=== PATIENT | female | born 1980 | race Caucasian/White ===

== ENCOUNTER 2017-03-23 10:22 | Emergency (ER) | payer MEDICAID, OTHER ==
[~2017-03-23] VITALS: Ht 167.6 cm; Wt 99.8 kg
[~2017-03-23 10:22] MED LIST: AUGMENTIN XR 11 EACH ORAL; AURALGAN OTIC1 DROP BOTH EARS; BENADRYL25 M3 PO; BENADRYL25 MG ORAL; BLEPH-105 ML OP; FLOXIN OTIC10 DROP OT; IBUPROFEN200 M2 ORAL; IBUPROFEN800 MG ORAL; KEFLEX500 MG ORAL; NAPROSYN500 M1 ORAL; NKM; NORCO 5-325 TA1 EACH ORAL; NYQUIL D COLD295 M1 PO; OPCON-A EYE DRO15 ML OP
[2017-03-23 10:30] VITALS: BP 162/122
[2017-03-23] MEDS ORDERED: LORazepam 1mg tab ORAL ONE (11:00)
[2017-03-23] MEDS ORDERED: Cephalexin 500mg cap ORAL ONE (11:00)
[2017-03-23] MEDS ORDERED: DOXYCYCLINE MO100 MG ORAL (11:13)
[2017-03-23] MEDS ORDERED: BENADRYL25 MG ORAL (11:13)
[2017-03-23] MEDS ORDERED: KEFLEX500 MG ORAL (11:13)
--- NOTE | 2017-03-23 11:13 | Emergency Room Report ---
History of Present Illness General Chief Complaint: Skin Rash/Abscess Source: Patient Present Illness HPI 36-year-old female no significant past medical history presenting with rash to right abdomen. He should see she woke up with very itchy rash, and some bug bites on her right abdomen this morning, very itchy and painful. Patient states that mother has similar insect bites on her arm. Denies any fever or chills. Denies any throat swelling or shortness of breath Allergies: Coded Allergies: No Known Allergies (Unverified , 10/30/13) Patient History Past Medical History: see triage record Past Surgical History: none Pertinent Family History: none Last Menstrual Period: 02/2017 Now: No : 3 Para: 1 Reviewed Nursing Documentation: PMH: Agreed, PSxH: Agreed Review of Systems All Other Systems: negative except mentioned in HPI Physical Exam Vital Signs Date Time Temp Pulse Resp B/P (MAP) Pulse Ox O2 Delivery O2 Flow Rate FiO2 03/23/17 10:30 98.2 103 22 162/122 96 Room Air Sp02 EP Interpretation: reviewed, normal General Appearance: normal inspection, well appearing, no apparent distress, alert, GCS 15, non-toxic Head: normocephalic, atraumatic Eyes: bilateral eye normal inspection, bilateral eye PERRL, bilateral eye EOMI ENT: normal ENT inspection, normal pharynx, normal voice, moist mucus membranes Neck: normal inspection, full range of motion, supple Respiratory: normal inspection, lungs clear, normal breath sounds, no respiratory distress, no retraction, no wheezing, speaking full sentences, chest symmetrical Cardiovascular #1: normal inspection, regular rate, rhythm, no edema, normal capillary refill Cardiovascular #2: 2+ radial (R), 2+ radial (L) Gastrointestinal: normal inspection, non tender, soft, non-distended, no guarding Musculoskeletal: normal inspection, back normal, normal range of motion, non- tender Neurologic: normal inspection, alert, oriented x3, responsive, motor strength/ tone normal, sensory intact, normal gait, speech normal Psychiatric: normal inspection, judgement/insight normal, memory normal Skin: warm/dry, well hydrated, normal turgor, other - four < 2 cm round insect bites on her right side of the abdomen, with surrounding erythema, tender to palpation, cellulitis extending about 7 x 7 cm. No crepitus Medical Decision Making Diagnostic Impression: Primary Impression: Cellulitis Additional Impression: Insect bite ER Course 36 yo F with insect bites and rash Plan: Pain control antibiotics ER course: Pt given Benadryl with improvement of itchiness Also given dose of antibiotics here in the emergency room Disposition: Patient is to be discharged to home with prescription of benadryl. + antibiotics Patient is instructed to followup in the emergency room or with her PCP in 48 hours for wound check. Strict return precautions to the ED discussed with patient including worsening/ persistent symptoms, rapid spread of rash, throat swelling, or shortness of breath, which may indicate severe illness. Patient verbalized understanding Last Vital Signs Date Time Temp Pulse Resp B/P (MAP) Pulse Ox O2 Delivery O2 Flow Rate FiO2 03/23/17 10:30 98.2 103 22 162/122 96 Room Air Disposition: HOME, SELF-CARE Condition: Stable Scripts Doxycycline Monohydrate* (DOXYCYCLINE MONOHYDRATE*) 100 Mg Capsule 100 MG ORAL Q12H for 7 Days, #14 CAP 0 Refills Prov: Rosalva Barton M.D. 03/23/17 Cephalexin* (KEFLEX*) 500 Mg Capsule 500 MG ORAL Q6H for 7 Days, #28 CAP 0 Refills Prov: Rosalva Barton M.D. 03/23/17 Diphenhydramine Hcl* (BENADRYL*) 25 Mg Capsule 25 MG ORAL Q6H Y for Itching for 7 Days, #28 CAP Prov: Rosalva Barton M.D. 03/23/17 Referrals: [facility],REFERRING (PCP) Rosalva Barton M.D. Mar 23, 2017 11:13
[2017-03-23 11:15] VITALS: BP 140/88
[2017-03-23 11:22] VITALS: BP 140/88
== END 2017-03-23 11:22 | disposition home or self-care (01) ==
LOC: EMR 10:52
DX: L03.311 Cellulitis of abdominal wall (principal); S30.861A Insect bite (nonvenomous) of abdominal wall, initial encounter; W57.XXXA Bitten or stung by nonvenomous insect and other nonvenomous arthropods, initial encounter; Y93.9 Activity, unspecified; Y92.9 Unspecified place or not applicable
CPT/HCPCS: 99284

== ENCOUNTER 2017-10-02 13:38 | Emergency (ER) | payer MEDICAID ==
[~2017-10-02] VITALS: Ht 167.6 cm; Wt 97.5 kg
[~2017-10-02 13:38] MED LIST changes: +DOXYCYCLINE MO100 MG ORAL
[2017-10-02] MEDS ORDERED: NKM (13:52)
[2017-10-02 14:15] VITALS: BP 165/112
[2017-10-02] MEDS ORDERED: Ipratropium 0.02% Inh Soln 2.5ml UD HHN ONE (14:15)
[2017-10-02] MEDS ORDERED: Albuterol ud Inhalation HHN ONE (14:15)
--- NOTE | 2017-10-02 14:21 | Emergency Room Report ---
History of Present Illness General Chief Complaint: Upper Respiratory Illness Source: Patient Present Illness HPI Patient's had a cough for 2 nights. She has some moderate upper abdominal discomfort only when coughing (she denied pain to RN). She denies fevers or chills. There's no sore throat. The cough has been nonproductive. She's heard herself wheezing. She's never used an inhaler before. She does smoke. She denies any calf tenderness or edema. She is concerned about exposure to black mold. No nausea vomiting diarrhea dysuria rashes. She has some upper back pain on occasion. Her last period ended last week and was normal for her. Her father is a recent diagnosis of a blood clot to his lung although he has several severe respiratory problems. She does not take control pills, has not been immobilized and no recent surgeries or oncologic problems. The patient gets anxious coming to the doctor and states this is why her heart rate is elevated. 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 Last Menstrual Period: 09/28/17 Now: No : 3 Para: 1 Reviewed Nursing Documentation: PMH: Agreed; PSxH: Agreed Nursing Documentation-PMH Past Medical History: No Stated History Review of Systems All Other Systems: negative except mentioned in HPI Physical Exam Vital Signs Date Time Temp Pulse Resp B/P (MAP) Pulse Ox O2 Delivery O2 Flow Rate FiO2 10/02/17 13:47 98.6 112 18 165/112 94 Room Air 98.6 Sp02 EP Interpretation: reviewed, normal General Appearance: well appearing, no apparent distress, GCS 15 Head: normocephalic Eyes: bilateral eye normal inspection, bilateral eye PERRL ENT: moist mucus membranes Neck: supple Respiratory: wheezing, expiration - minimal Cardiovascular #1: no edema, tachycardia Cardiovascular #2: 2+ radial (L) Gastrointestinal: normal inspection, normal bowel sounds, non tender, no mass, non-distended, overweight Musculoskeletal: back normal, gait/station normal, normal range of motion, no calf tenderness, Neftali's Sign negative Neurologic: alert, oriented x3, grossly normal Psychiatric: anxious Skin: normal inspection, warm/dry Medical Decision Making Diagnostic Impression: Primary Impression: Atypical pneumonia Additional Impressions: Bronchospasm Resting tachycardia Cardiomegaly UTI (urinary tract infection) Qualified Codes: N30.00 - Acute cystitis without hematuria ER Course Patient presents with cough and wheezing for 2 nights. Differential includes bronchospasm, pneumonia, bronchitis, allergies amongst others. Risk factors are smoking. Evaluation will be with chest x-ray. The patient will be treated with bronchodilators and we will see how she does with this. On re- consideration I will be drawn labs including a d-dimer and check EKG. EKG is abnormal. CXR with cardiomegally. Labs with elevated D dimer and pyuria. Rocephin given. Improved post albuterol. Due to elevated d-dimer, CTA ordered. CTA without large clot. Nodularity bilat. Radiologist suggests evidence of infectious process. Discussed with patient. Azithromycin also begun. Patient improved - normal O2 sat and no more resting tachycardia. Stable for outpatient observation and treatment. (Needs echocardiogram.) Laboratory Tests Test 10/02/17 14:15 10/02/17 14:50 Urine Color Yellow Urine Appearance Slightly cloudy Urine pH 6 (4.5-8.0) Urine Specific [place] 1.025 (1.005-1.035) Urine Protein 2+ (NEGATIVE) H Urine Glucose (UA) Negative (NEGATIVE) Urine Ketones 1+ (NEGATIVE) H Urine Occult Blood 3+ (NEGATIVE) H Urine Nitrite Positive (NEGATIVE) H Urine Bilirubin Negative (NEGATIVE) Urine Urobilinogen Normal MG/DL (0.0-1.0) Urine Leukocyte Esterase 3+ (NEGATIVE) H Urine RBC 2-4 /HPF (0 - 2) H Urine WBC 15-20 /HPF (0 - 2) H Urine Squamous Epithelial Cells Few /LPF (NONE/OCC) Urine Bacteria Moderate /HPF (NONE) H Urine HCG, Qualitative Negative (NEGATIVE) White Blood Count 10.7 K/UL (4.8-10.8) Red Blood Count 5.56 M/UL (4.20-5.40) H Hemoglobin 16.0 G/DL (12.0-16.0) Hematocrit 47.5 % (37.0-47.0) H Mean Corpuscular Volume 85 FL (80-99) Mean Corpuscular Hemoglobin 28.7 PG (27.0-31.0) Mean Corpuscular Hemoglobin Concent 33.6 G/DL (32.0-36.0) Red Cell Distribution Width 11.7 % (11.6-14.8) Platelet Count 350 K/UL (150-450) Mean Platelet Volume 5.6 FL (6.5-10.1) L Neutrophils (%) (Auto) 65.0 % (45.0-75.0) Lymphocytes (%) (Auto) 26.1 % (20.0-45.0) Monocytes (%) (Auto) 8.1 % (1.0-10.0) Eosinophils (%) (Auto) 0.3 % (0.0-3.0) Basophils (%) (Auto) 0.6 % (0.0-2.0) Prothrombin Time 9.9 SEC (9.30-11.50) Prothrombin Time INR 0.9 (0.9-1.1) PTT 32 SEC (23-33) D-Dimer 0.67 mg/L FEU (0.00-0.49) H Sodium Level 137 MMOL/L (136-145) Potassium Level 3.7 MMOL/L (3.5-5.1) Chloride Level 101 MMOL/L (98-107) Carbon Dioxide Level 27 MMOL/L (21-32) Anion Gap 9 mmol/L (5-15) Blood Urea Nitrogen 13 mg/dL (7-18) Creatinine 1.1 MG/DL (0.55-1.30) Estimate Glomerular Filtration Rate 55.9 mL/min (>60) Glucose Level 114 MG/DL (74-106) H Calcium Level 8.8 MG/DL (8.5-10.1) Total Bilirubin 0.3 MG/DL (0.2-1.0) Aspartate Amino Transferase (AST) 18 U/L (15-37) Alanine Aminotransferase (ALT) 20 U/L (12-78) Alkaline Phosphatase 57 U/L (46-116) Total Creatine Kinase 119 U/L (26-308) Troponin I 0.002 ng/mL (0.000-0.056) Pro-B-Type Natriuretic Peptide 168 pg/mL (0-125) H Total Protein 7.1 G/DL (6.4-8.2) Albumin 2.8 G/DL (3.4-5.0) L Globulin 4.3 g/dL Albumin/Globulin Ratio 0.7 (1.0-2.7) L EKG Diagnostic Results Rate: tachycardiac Rhythm: other - tachycardia ST Segments: other - strain and R axis Rhythm Strip Diag. Results EP Interpretation: yes Rhythm: no PVC's, no ectopy, other - tachycardia Chest X-Ray Diagnostic Results Chest X-Ray Diagnostic Results : Chest X-Ray Ordered: Yes # of Views/Limited/Complete: 1 View Indication: Other EP Interpretation: Yes Interpretation: no consolidation, no effusion, no pneumothorax, other - cardiomegally CT/MRI/US Diagnostic Results CT/MRI/US Diagnostic Results : Imaging Test Ordered: CTA lungs Impression nodular parenchymal processes, no major PE Findings: There is some image degradation due to respiratory motion artifact, particularly at the lung bases. No definite intraluminal filling defects or other findings to suggest acute pulmonary embolus demonstrated. No evidence of pulmonary material dilatation or ventricular dilatation. No evidence of thoracic aortic aneurysm or dissection. The lungs demonstrate patchy, nodular, and groundglass opacities within the left lower lobe and inferior left upper lobe. Less extensive similar opacities are seen in the inferior right upper lobe and minimally in the right lower lobe , some nodular. No effusions. No salima masses. The heart is enlarged. No pericardial effusion. No mediastinal or hilar mass or adenopathy. No axillary or chest wall mass or adenopathy. Included upper abdominal anatomy is unremarkable. Impression: Limited exam due to motion artifact. Small peripheral emboli [employer]. No gross large vessel central pulmonary embolus demonstrated. Bilateral pulmonary parenchymal disease, left greater than right. Nonspecific, but suspect on the basis of pneumonia Cardiomegaly Last Vital Signs Date Time Temp Pulse Resp B/P (MAP) Pulse Ox O2 Delivery O2 Flow Rate FiO2 10/02/17 19:35 98.6 96 20 149/90 99 Room Air 21 98.6 Status: improved Disposition: HOME, SELF-CARE Condition: Improved Scripts Albuterol Sulfate* (ALBUTEROL SULFATE MDI*) 8.5 Gm Hfa.aer.ad 2 PUFF INH Q6H, #1 EA 0 Refills Prov: Иван Sims M.D. 10/02/17 Guaifenesin/Codeine Phos* (ROBITUSSIN AC*) 118 Ml Liquid 5 ML ORAL Q6H PRN for For Cough, #118 ML 0 Refills Prov: Иван Sims M.D. 10/02/17 Azithromycin* (ZITHROMAX*) 250 Mg Tablet 250 MG ORAL DAILY, #4 TAB 0 Refills Prov: Иван Sims M.D. 10/02/17 Иван Sims M.D. Oct 02, 2017 14:21
[2017-10-02 14:27] LABS: APPEARANCE,URINE SLIGHTLY CLOUDY; BILIRUBIN, URINE NEGATIVE (NEGATIVE); GLUCOSE, URINE (UA) NEGATIVE (NEGATIVE); KETONES,URINE 1+ (NEGATIVE); LEUKOCYTE ESTERASE ,URINE 3+ (NEGATIVE); NITRITE,URINE POSITIVE (NEGATIVE); PH,URINE 6 (4.5-8.0); PROTEIN,URINE 2+ (NEGATIVE); UROBILINOGEN,URINE NORMAL MG/DL (0.0-1.0)
[2017-10-02 14:43] LABS: COLOR,URINE YELLOW
[2017-10-02 14:58] LABS: BASOPHILS % (AUTO) 0.6 % (0.0-2.0); EOSINOPHILS % (AUTO) 0.3 % (0.0-3.0); HEMATOCRIT 47.5 % (37.0-47.0); LYMPHOCYTES % (AUTO) 26.1 % (20.0-45.0); MEAN CORPUSCULAR VOLUME 85 FL (80-99); MONOCYTES % (AUTO) 8.1 % (1.0-10.0); PLATELET COUNT 350 K/UL (150-450); RED BLOOD COUNT 5.56 M/UL (4.20-5.40); RED CELL DISTRIBUTION WIDTH 11.7 % (11.6-14.8); WHITE BLOOD COUNT 10.7 K/UL (4.8-10.8)
[2017-10-02 15:15] LABS: INR 0.9 (0.9-1.1)
[2017-10-02 15:17] LABS: ANION GAP 9 mmol/L (5-15); BLOOD UREA NITROGEN 13 mg/dL (7-18); CALCIUM 8.8 MG/DL (8.5-10.1); CARBON DIOXIDE 27 MMOL/L (21-32); CHLORIDE 101 MMOL/L (98-107); CREATININE 1.1 MG/DL (0.55-1.30); POTASSIUM 3.7 MMOL/L (3.5-5.1); SODIUM 137 MMOL/L (136-145)
[2017-10-02 15:28] LABS: ALANINE AMINOTRANSFERASE 20 U/L (12-78); ALBUMIN 2.8 G/DL (3.4-5.0); ALBUMIN/GLOBULIN RATIO 0.7 (1.0-2.7); ALKALINE PHOSPHATASE 57 U/L (46-116); ASPARTATE AMINO TRANSFERASE 18 U/L (15-37); BILIRUBIN,TOTAL 0.3 MG/DL (0.2-1.0); CREATINE KINASE 119 U/L (26-308)
[2017-10-02 15:50] VITALS: BP 142/102
[2017-10-02] MEDS ORDERED: cefTRIAXone 1 GM in NS 55 ML IVPB ONE (16:15)
[2017-10-02 17:35] VITALS: BP 156/100
[2017-10-02] MEDS ORDERED: AZITHROMYCIN250 MG ORAL (19:22)
[2017-10-02] MEDS ORDERED: GUAIFENESIN-CO118 M1 ORAL (19:22)
[2017-10-02] MEDS ORDERED: ALBUTEROL SULF8.5 GM INH (19:22)
[2017-10-02 19:30] VITALS: BP 149/90
[2017-10-02] MEDS ORDERED: Azithromycin 250mg tab ORAL ONE (19:30)
[2017-10-02 19:35] VITALS: BP 149/90
--- NOTE | 2017-10-03 09:13 | Diagnostic Imaging Report ---
Indication: Cough Technique: One view of the chest Comparison: none Findings: The heart is enlarged. The left hemidiaphragm is obscured. The lungs and pleural spaces are otherwise clear Impression: Cardiomegaly. Obscured left hemidiaphragm, probably due to overlying soft tissue, but pleural and/or parenchymal disease at the left lung base also a possibility This agrees with the preliminary interpretation provided by the emergency room physician
--- NOTE | 2017-10-03 09:38 | Diagnostic Imaging Report ---
ndication: Cough and shortness of breath Technique: IV administration nonionic contrast. Spiral acquisitions obtained from the lung bases to the lung apices. Multiplanar and 3-D reconstructions were generated. Total dose length product 1229.78 mGycm. CTDIvol(s) 42.72 mGy. Dose reduction achieved using automated exposure control Comparison: none Findings: There is some image degradation due to respiratory motion artifact, particularly at the lung bases. No definite intraluminal filling defects or other findings to suggest acute pulmonary embolus demonstrated. No evidence of pulmonary material dilatation or ventricular dilatation. No evidence of thoracic aortic aneurysm or dissection. The lungs demonstrate patchy, nodular, and groundglass opacities within the left lower lobe and inferior left upper lobe. Less extensive similar opacities are seen in the inferior right upper lobe and minimally in the right lower lobe, some nodular. No effusions. No salima masses. The heart is enlarged. No pericardial effusion. No mediastinal or hilar mass or adenopathy. No axillary or chest wall mass or adenopathy. Included upper abdominal anatomy is unremarkable. Impression: Limited exam due to motion artifact. Small peripheral emboli [employer]. No gross large vessel central pulmonary embolus demonstrated. Bilateral pulmonary parenchymal disease, left greater than right. Nonspecific, but suspect on the basis of pneumonia Cardiomegaly This agrees with the preliminary interpretation provided overnight by [facility]. The CT scanner at [facility] is accredited by the [employer] and the scans are performed using protocols designed to limit radiation exposure to as low as reasonably achievable to attain images of sufficient resolution adequate for diagnostic evaluation.
== END 2017-10-02 19:35 | disposition home or self-care (01) ==
LOC: EMR 14:25
DX: J18.9 Pneumonia, unspecified organism (principal); J98.01 Acute bronchospasm; R00.0 Tachycardia, unspecified; I51.7 Cardiomegaly; N30.00 Acute cystitis without hematuria; R79.1 Abnormal coagulation profile; F17.200 Nicotine dependence, unspecified, uncomplicated
CPT/HCPCS: 36415; 71045; 71275; 80053; 81003; 81025; 82550; 83880; 84484; 85025; 85379; 85610; 85730; 87086; 87181; 93005; 94640; 94664; 96374; 99284; J0696; Q0144; Q9967

== ENCOUNTER 2018-01-13 17:47 | Emergency (ER) | payer MEDICAID ==
[~2018-01-13] VITALS: Ht 167.6 cm; Wt 104.3 kg
[~2018-01-13 17:47] MED LIST changes: +ALBUTEROL SULF8.5 GM INH; +AZITHROMYCIN250 MG ORAL; +GUAIFENESIN-CO118 M1 ORAL
[2018-01-13 17:59] VITALS: BP 142/91
[2018-01-13] MEDS ORDERED: Phenazopyridine 200mg tab ORAL ONE (18:00)
[2018-01-13 18:14] LABS: APPEARANCE,URINE CLOUDY; BILIRUBIN, URINE NEGATIVE (NEGATIVE); COLOR,URINE YELLOW; GLUCOSE, URINE (UA) NEGATIVE (NEGATIVE); KETONES,URINE NEGATIVE (NEGATIVE); LEUKOCYTE ESTERASE ,URINE 3+ (NEGATIVE); NITRITE,URINE NEGATIVE (NEGATIVE); PH,URINE 6 (4.5-8.0); PROTEIN,URINE 2+ (NEGATIVE); UROBILINOGEN,URINE NORMAL MG/DL (0.0-1.0)
--- NOTE | 2018-01-13 18:28 | Emergency Room Report ---
History of Present Illness General Chief Complaint: Abdominal Pain Source: Patient Present Illness HPI 37-year-old female presents emergency department complaining of 7 out of 10 in severity dysuria with lower abdominal pain that is radiating around to her lower back. Patient states that she just started her menstrual cycle yesterday however she is starting to notice burning upon urination. Patient denies vaginal discharge otherwise she reports intermittent abdominal cramping. Patient denies sharp shooting pains. Patient states for the most part her pain is constant and dull. Denies fevers or chills she denies nausea, vomiting, constipation or diarrhea. She denies . Denies hx of kidney stones. Patient states for the most part nothing exacerbates her pain, she did report that on the drive to the ED going over large bumps seemed to cause acute exacerbation of her pain which was not present before. She denies trauma or fall. Denies rashes or external vaginal lesions, swollen tender lymph nodes. Allergies: Coded Allergies: No Known Allergies (Unverified , 10/30/13) Patient History Past Medical History: see triage record Past Surgical History: none Pertinent Family History: none Last Menstrual Period: 01/12/18 Now: No : 3 Para: 1 Reviewed Nursing Documentation: PMH: Agreed; PSxH: Agreed Nursing Documentation-PMH Past Medical History: No Stated History Review of Systems All Other Systems: negative except mentioned in HPI Physical Exam Vital Signs Date Time Temp Pulse Resp B/P (MAP) Pulse Ox O2 Delivery O2 Flow Rate FiO2 01/13/18 17:55 98.4 118 16 142/91 98 Room Air 98.4 Sp02 EP Interpretation: reviewed, normal General Appearance: no apparent distress, alert, GCS 15, non-toxic Head: normocephalic, atraumatic ENT: hearing grossly normal, normal voice Neck: full range of motion Respiratory: lungs clear, normal breath sounds, speaking full sentences Cardiovascular #1: tachycardia Gastrointestinal: normal bowel sounds, non tender, soft, non-distended, no guarding Rectal: deferred Genitourinary: normal inspection, no CVA tenderness Musculoskeletal: back normal, gait/station normal, normal range of motion, non- tender Neurologic: alert, oriented x3, responsive, motor strength/tone normal, sensory intact, speech normal, grossly normal Psychiatric: judgement/insight normal Skin: normal color, no rash, warm/dry, well hydrated Lymphatic: no adenopathy Medical Decision Making PA Attestation Dr. Vargas is my supervising Physician whom patient management has been discussed with. Diagnostic Impression: Primary Impression: Dysuria Additional Impression: Abdominal pain Qualified Codes: R10.30 - Lower abdominal pain, unspecified ER Course 37-year-old female presents emergency department complaining of 7 out of 10 in severity dysuria with lower abdominal pain that is radiating around to her lower back. Patient states that she just started her menstrual cycle yesterday however she is starting to notice burning upon urination. Patient denies vaginal discharge otherwise she reports intermittent abdominal cramping. Patient denies sharp shooting pains. Patient states for the most part her pain is constant and dull. Denies fevers or chills she denies nausea, vomiting, constipation or diarrhea. She denies . Denies hx of kidney stones. Patient states for the most part nothing exacerbates her pain, she did report that on the drive to the ED going over large bumps seemed to cause acute exacerbation of her pain which was not present before. She denies trauma or fall. Denies rashes or external vaginal lesions, swollen tender lymph nodes. Ddx considered but are not limited to UTi , Pyelo, Acute appendicitis, STI, Stone, Cystitis, PID, Ovarian Torsion, ovarian cyst just to name a few. Vital signs: Tachycardic pt. is afebrile H&PE are most consistent with UTI / possible stone. HR auscultated to be fast/ tachy pt. reports that she gets told that frequently at doctors visits. ORDERS: - UA labs are attached : RBCs an occult blood consistent with menstrual cycle. Elevated white blood cells and leukocytes. Few bacteria ED INTERVENTIONS: -Pyridium Unable to d/w pt. UA results and CT consideration because she eloped when UA was pending. Labs Test 01/13/18 18:02 Urine Color Yellow Urine Appearance Cloudy Urine pH 6 (4.5-8.0) Urine Specific [place] 1.015 (1.005-1.035) Urine Protein 2+ (NEGATIVE) Urine Glucose (UA) Negative (NEGATIVE) Urine Ketones Negative (NEGATIVE) Urine Occult Blood 5+ (NEGATIVE) Urine Nitrite Negative (NEGATIVE) Urine Bilirubin Negative (NEGATIVE) Urine Urobilinogen Normal MG/DL (0.0-1.0) Urine Leukocyte Esterase 3+ (NEGATIVE) Urine RBC 20-30 /HPF (0 - 2) Urine WBC Tntc /HPF (0 - 2) Urine Squamous Epithelial Cells Many /LPF (NONE/OCC) Urine Bacteria Few /HPF (NONE) Urine HCG, Qualitative Negative (NEGATIVE) Last Vital Signs Date Time Temp Pulse Resp B/P (MAP) Pulse Ox O2 Delivery O2 Flow Rate FiO2 01/13/18 17:59 98.4 118 16 142/91 98 Room Air 98.4 Disposition: Beatriz Viramontes Jan 13, 2018 18:28
[2018-01-13 19:08] VITALS: BP 142/91
[2018-01-14] MEDS ORDERED: CEPHALEXIN500 MG ORAL (23:53)
[2018-01-14] MEDS ORDERED: IBUPROFEN600 MG ORAL (23:53)
== END 2018-01-13 19:08 | disposition left against medical advice (07) ==
LOC: EMR 18:28
DX: R30.0 Dysuria (principal); R10.30 Lower abdominal pain, unspecified
CPT/HCPCS: 81003; 81025; 87086; 99283

== ENCOUNTER 2018-01-14 23:29 | Emergency (ER) | payer MEDICAID ==
[~2018-01-14] VITALS: Ht 167.6 cm; Wt 104.3 kg
[2018-01-14 23:45] VITALS: BP 126/79
[2018-01-14] MEDS ORDERED: IBUPROFEN600 MG ORAL (23:53)
[2018-01-14] MEDS ORDERED: CEPHALEXIN500 MG ORAL (23:53)
--- NOTE | 2018-01-14 23:53 | Emergency Room Report ---
History of Present Illness General Chief Complaint: Abdominal Pain Source: Patient Present Illness HPI Is a 37-year-old female with no cerumen past medical history. She presents with chief complaint of pelvic pain. She was here yesterday for chief complaint of dysuria and frequency. She had urine sent and received a dose of Pyridium. Because was so busy she did not stay and left. Urinalysis showed UTI. She never got antibiotics. Her urinary urgency and frequency is better. She still has dysuria. No back pain. No nausea no vomiting no fever or chills. She is here for antibiotics. Allergies: Coded Allergies: No Known Allergies (Unverified , 10/30/13) Patient History Past Medical History: see triage record, old chart reviewed Past Surgical History: other Pertinent Family History: none Social History: Denies: smoking Last Menstrual Period: January 12 Now: No Immunizations: other Reviewed Nursing Documentation: PMH: Agreed; PSxH: Agreed Nursing Documentation-PMH Past Medical History: No Stated History Review of Systems Eye: Denies: eye pain, blurred vision ENT: Denies: ear pain, nose congestion, throat swelling Respiratory: Denies: cough, shortness of breath Cardiovascular: Denies: chest pain, palpitations Gastrointestinal: Denies: abdominal pain, diarrhea, nausea, vomiting Genitourinary: Reports: dysuria, pain Musculoskeletal: Denies: back pain, joint pain Skin: Denies: rash Neurological: Denies: headache, numbness Endocrine: Denies: increased thirst, increased urine Hematologic/Lymphatic: Denies: easy bruising All Other Systems: negative except mentioned in HPI Physical Exam Vital Signs Date Time Temp Pulse Resp B/P (MAP) Pulse Ox O2 Delivery O2 Flow Rate FiO2 01/14/18 23:38 98.4 116 18 120/79 98 Room Air 98.4 vitals with tachycardia Sp02 EP Interpretation: reviewed, normal General Appearance: well appearing, no apparent distress, alert Head: normocephalic, atraumatic Eyes: bilateral eye PERRL, bilateral eye EOMI ENT: hearing grossly normal, normal pharynx Neck: full range of motion, supple, no meningismus Respiratory: chest non-tender, lungs clear, normal breath sounds Cardiovascular #1: regular rate, rhythm - heart rate 90, no murmur Gastrointestinal: normal bowel sounds, no mass, no organomegaly, no bruit, non- distended, tenderness - suprapubic tenderness Musculoskeletal: back normal, gait/station normal, normal range of motion Psychiatric: mood/affect normal Skin: warm/dry Medical Decision Making Diagnostic Impression: Primary Impression: Abdominal pain Qualified Codes: R10.30 - Lower abdominal pain, unspecified Additional Impression: UTI (urinary tract infection) Qualified Codes: N30.00 - Acute cystitis without hematuria ER Course Patient with lower abdominal pain and urinalysis from yesterday show possible UTI. We'll go ahead and put on antibiotics. She grew out Escherichia coli in the past that's pansensitive. No evidence of ectopic. No evidence of pyelonephritis or acute abdomen. We'll discharge home. Last Vital Signs Date Time Temp Pulse Resp B/P (MAP) Pulse Ox O2 Delivery O2 Flow Rate FiO2 01/14/18 23:38 98.4 116 18 120/79 98 Room Air 98.4 Status: unchanged Disposition: HOME, SELF-CARE Condition: Stable Scripts Ibuprofen* (MOTRIN*) 600 Mg Tablet 600 MG ORAL THREE TIMES A DAY, #30 TAB 0 Refills Prov: KAMRAN WALLACE M.D. 01/14/18 Cephalexin* (KEFLEX*) 500 Mg Capsule 500 MG ORAL TID, #21 CAP Prov: KAMRAN WALLACE M.D. 01/14/18 Additional Instructions: Follow-up with your DrShaq in 2 to 3 days if not better. Return if symptom worsen. KAMRAN WALLACE M.D. Jan 14, 2018 23:53
[2018-01-15] MEDS ORDERED: Cephalexin 500mg cap ORAL ONE
[2018-01-15 00:15] VITALS: BP 126/79
== END 2018-01-15 01:10 | disposition home or self-care (01) ==
LOC: EMR 01-15 01:05
DX: N30.00 Acute cystitis without hematuria (principal)
CPT/HCPCS: 99284

== ENCOUNTER 2018-04-30 20:44 | Emergency (ER) | payer MEDICAID, OTHER ==
[~2018-04-30] VITALS: Ht 167.6 cm; Wt 99.8 kg
[~2018-04-30 20:44] MED LIST changes: +CEPHALEXIN500 MG ORAL; +IBUPROFEN600 MG ORAL
[2018-04-30] MEDS ORDERED: NKM (21:05)
[2018-04-30 21:17] VITALS: BP 147/98
[2018-04-30] MEDS ORDERED: CATAPRES0.1 MG ORAL (21:23)
--- NOTE | 2018-04-30 21:24 | Emergency Room Report ---
History of Present Illness General Chief Complaint: Hypertension Source: Patient Present Illness HPI Is a 37-year-old female with no past medical history. She presents with chief complaint of high blood pressure. 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 She try to go to a substance abuse center on Tuesday and blood pressure was elevated. She was told that she need Dr. tanner. She did admit to using crystal amphetamine today. She was also using last Tuesday. He her blood pressure was elevated 140 systolic over 100 diastolic. She's been here several times in the past without any issue with high blood pressure. Denies any chest pain, shortness of breath, fever chills or hematuria. No other complaint. Allergies: Coded Allergies: No Known Allergies (Unverified , 10/30/13) Patient History Past Medical History: see triage record, old chart reviewed Past Surgical History: none Pertinent Family History: none Social History: Reports: drug use - crystal meth Last Menstrual Period: 04/29/18 Now: No Immunizations: other Reviewed Nursing Documentation: PMH: Agreed; PSxH: Agreed Nursing Documentation-PMH Past Medical History: No History, Except For History Of Psychiatric Problem: Yes - substance abuse, anxiety Review of Systems Eye: Denies: eye pain, blurred vision ENT: Denies: ear pain, nose congestion, throat swelling Respiratory: Denies: cough, shortness of breath Cardiovascular: Denies: chest pain, palpitations Gastrointestinal: Denies: abdominal pain, diarrhea, nausea, vomiting Musculoskeletal: Denies: back pain, joint pain Skin: Denies: rash Neurological: Denies: headache, numbness Endocrine: Denies: increased thirst, increased urine Hematologic/Lymphatic: Denies: easy bruising All Other Systems: negative except mentioned in HPI Physical Exam Vital Signs Date Time Temp Pulse Resp B/P (MAP) Pulse Ox O2 Delivery O2 Flow Rate FiO2 04/30/18 21:00 98.7 97 16 160/116 97 Room Air 98.8 vitals with high blood pressure Sp02 EP Interpretation: reviewed, normal General Appearance: well appearing, no apparent distress, alert Head: normocephalic, atraumatic Eyes: bilateral eye PERRL, bilateral eye EOMI ENT: hearing grossly normal, normal pharynx Neck: full range of motion, supple, no meningismus Respiratory: chest non-tender, lungs clear, normal breath sounds Cardiovascular #1: regular rate, rhythm, no murmur Gastrointestinal: normal bowel sounds, non tender, no mass, no organomegaly, no bruit, non-distended Musculoskeletal: back normal, gait/station normal, normal range of motion Psychiatric: mood/affect normal Skin: warm/dry Medical Decision Making Diagnostic Impression: Primary Impression: Hypertension Qualified Codes: I10 - Essential (primary) hypertension Additional Impression: Methamphetamine abuse ER Course Patient presents with high blood pressure. This may be secondary to drug abuse and/or withdrawal symptoms. No evidence of endorgan damage. She been here several times in the past and blood pressures been unremarkable. Labs been unremarkable. Last Vital Signs Date Time Temp Pulse Resp B/P (MAP) Pulse Ox O2 Delivery O2 Flow Rate FiO2 04/30/18 21:17 98.8 81 16 147/98 97 Room Air 98.8 Status: improved Disposition: HOME, SELF-CARE Condition: Stable Scripts Clonidine Hcl* (CATAPRES*) 0.1 Mg Tablet 0.1 MG ORAL EVERY 8 HOURS, #30 TAB Prov: Moustapha Mera MD 04/30/18 Additional Instructions: Follow-up with your doctor in 7 days for recheck on your blood pressure. Return if symptom worsen. There is no issue with going to rehabilitation for substance abuse. Moustapha Mera MD Apr 30, 2018 21:24
[2018-04-30 21:40] VITALS: BP 147/98
== END 2018-04-30 21:45 | disposition home or self-care (01) ==
LOC: EMR 21:41
DX: I10 Essential (primary) hypertension (principal); F15.10 Other stimulant abuse, uncomplicated; F41.9 Anxiety disorder, unspecified
CPT/HCPCS: 99282

== ENCOUNTER 2018-05-05 06:47 | Emergency (ER) | payer MEDICAID ==
[~2018-05-05] VITALS: Ht 167.6 cm; Wt 99.8 kg
[~2018-05-05 06:47] MED LIST changes: +CATAPRES0.1 MG ORAL
[2018-05-05 07:15] VITALS: BP 135/97
[2018-05-05] MEDS ORDERED: cloNIDine 0.2mg Tab ORAL ONE ×2 (07:15→08:30)
--- NOTE | 2018-05-05 07:19 | Emergency Room Report ---
History of Present Illness General Chief Complaint: Hypertension Source: Patient Present Illness HPI Patient presents with blood pressure out of control. She was going into a residential treatment center for a crystal meth. Her blood pressure there was 167/112 at the rehab facility. In January she was started on Catapres 0.1 mg and has been taking it 3 times a day. She denies any symptoms. This includes chest pain, headache, nausea, vomiting, diarrhea, dysuria. She denies fevers or chills. There's no dizziness. In January she was also treated for urinary tract infection. She denies any dysuria at this time. Her last period was last week and normal for her. She did not take her dose today. No fevers, NVD, headache, chest pain, rashes, dysuria, abnormal menses. She was treated for UTI with Keflex in January. Allergies: Coded Allergies: No Known Allergies (Unverified , 10/30/13) Patient History Past Medical History: see triage record, old chart reviewed Social History: Reports: smoking; Denies: drug use - meth Social History Narrative with sig other Last Menstrual Period: 04/29/18 Now: No Reviewed Nursing Documentation: PMH: Agreed; PSxH: Agreed Review of Systems All Other Systems: negative except mentioned in HPI Physical Exam Vital Signs Date Time Temp Pulse Resp B/P (MAP) Pulse Ox O2 Delivery O2 Flow Rate FiO2 05/05/18 06:50 97.7 84 18 104/102 99 Room Air Sp02 EP Interpretation: reviewed, normal General Appearance: well appearing, no apparent distress, GCS 15 Head: normocephalic Eyes: bilateral eye normal inspection, bilateral eye PERRL ENT: moist mucus membranes Neck: supple Respiratory: lungs clear, normal breath sounds Cardiovascular #1: regular rate, rhythm, no edema Cardiovascular #2: 2+ radial (R) Gastrointestinal: normal inspection, normal bowel sounds, non tender, no mass, non-distended, overweight Musculoskeletal: back normal, gait/station normal, normal range of motion, no calf tenderness Neurologic: alert, oriented x3, grossly normal Psychiatric: mood/affect normal Skin: normal inspection, warm/dry Medical Decision Making Diagnostic Impression: Primary Impression: Hypertension Qualified Codes: I10 - Essential (primary) hypertension Additional Impression: UTI (urinary tract infection) Qualified Codes: N30.00 - Acute cystitis without hematuria ER Course The patient presents with hypertension that C symptomatic. I differential includes essential hypertension poorly controlled. Initial vital signs are nonsensical and will be repeated. Labs are reviewed. She has any chest pain and EKG is not indicated at this time. She had a UTI we will check a urinalysis to make sure the UTI was treated. The patient will be treated with 0.2 mg of clonidine and observed. Labs reviewed from before and normal (except for UTI). UA now with pyuria. Improved BP but still above acceptable for rehab. Another 0.1 mg given. BP improved. Patient medially cleared for entry to rehab facility. Patient stable for outpatient observation and treatment. Laboratory Tests Test 05/05/18 07:45 Urine Color Pale yellow Urine Appearance Cloudy Urine pH 6 (4.5-8.0) Urine Specific [place] 1.025 (1.005-1.035) Urine Protein 1+ (NEGATIVE) H Urine Glucose (UA) Negative (NEGATIVE) Urine Ketones Negative (NEGATIVE) Urine Blood 1+ (NEGATIVE) H Urine Nitrite Negative (NEGATIVE) Urine Bilirubin Negative (NEGATIVE) Urine Urobilinogen Normal MG/DL (0.0-1.0) Urine Leukocyte Esterase 2+ (NEGATIVE) H Urine RBC 2-4 /HPF (0 - 2) H Urine WBC 10-15 /HPF (0 - 2) H Urine Squamous Epithelial Cells Many /LPF (NONE/OCC) H Urine Bacteria Many /HPF (NONE) H Urine HCG, Qualitative Negative (NEGATIVE) Rhythm Strip Diag. Results EP Interpretation: yes Rhythm: NSR, no PVC's, no ectopy Last Vital Signs Date Time Temp Pulse Resp B/P (MAP) Pulse Ox O2 Delivery O2 Flow Rate FiO2 05/05/18 09:57 97.7 85 18 136/73 99 Room Air Status: improved Disposition: HOME, SELF-CARE Condition: Improved Scripts Nitrofurantoin Monohyd/M-Cryst* (MACROBID 100 MG*) 100 Mg Capsule 100 MG ORAL EVERY 12 HOURS, #14 CAP Prov: Иван Sims MD 05/05/18 Иван Sims MD May 05, 2018 07:19
[2018-05-05 08:14] LABS: APPEARANCE,URINE CLOUDY; BILIRUBIN, URINE NEGATIVE (NEGATIVE); COLOR,URINE PALE YELLOW; GLUCOSE, URINE (UA) NEGATIVE (NEGATIVE); KETONES,URINE NEGATIVE (NEGATIVE); LEUKOCYTE ESTERASE ,URINE 2+ (NEGATIVE); NITRITE,URINE NEGATIVE (NEGATIVE); PH,URINE 6 (4.5-8.0); PROTEIN,URINE 1+ (NEGATIVE); UROBILINOGEN,URINE NORMAL MG/DL (0.0-1.0)
[2018-05-05] MEDS ORDERED: NITROFURANTOIN100 M2 ORAL (09:52)
[2018-05-05 09:57] VITALS: BP 136/73
== END 2018-05-05 09:57 | disposition home or self-care (01) ==
LOC: EMR 07:26
DX: I10 Essential (primary) hypertension (principal); N39.0 Urinary tract infection, site not specified; F17.200 Nicotine dependence, unspecified, uncomplicated
CPT/HCPCS: 81003; 81025; 87086; 87181; 99283